=== PATIENT | male | born 1970 | race Caucasian/White ===

== ENCOUNTER 2018-02-01 13:27 | Emergency (ER) | payer OTHER ==
[~2018-02-01] VITALS: Ht 193 cm; Wt 90.7 kg
[2018-02-01] MEDS ORDERED: Voltaren100 GM TOP (14:21)
[2018-02-01] MEDS ORDERED: METPRE4DP PO (14:21)
[2018-02-01] MEDS ORDERED: Robaxin500 MG PO (14:21)
== END 2018-02-01 14:52 | disposition home or self-care (01) ==
LOC: ER 13:27
DX: M54.41 Lumbago with sciatica, right side (principal); F17.210 Nicotine dependence, cigarettes, uncomplicated
CPT/HCPCS: 96372; 99283; J1885